=== PATIENT | female | born 1960 | race Caucasian/White ===

== ENCOUNTER 2016-06-08 16:21 | Emergency (ER) | payer MEDICARE ==
--- NOTE | 2016-07-02 08:06 | ER ---
ADMIT: 06/08/2016 [place] [facility] [place] [id number] [id number] [address] [place] [address] Emergency Room Report SEX: F AGE: 55 : 1960 DATE: 06/08/2016 ADDENDUM: CHIEF COMPLAINT: Laceration to bilateral 3rd fingers. HISTORY OF PRESENT ILLNESS: This 55-year-old, who was using a mandolin to cut some things. She cut her 3rd finger on one hand and then switched to the other hand and then cut the other side. There are avulsions to the tips of the finger. Surgicel was placed bilateral. There is no repair done. CLINICAL IMPRESSION: Avulsion to distal bilateral 3rd fingers. NEVIN Castillo / Marcel Hyman MD / modl JOB #: [id number] CC: Marcel Hyman MD, Attending Physician Shahnaz Barcenas MD, Family Physician
== END 2016-06-08 17:00 | disposition home or self-care (01) ==
LOC: ER 16:21
PROC: 0HQGXZZ Repair Left Hand Skin, External Approach (ICD-10-PCS; principal; 2016-06-08)
PROC: 0HQFXZZ Repair Right Hand Skin, External Approach (ICD-10-PCS; principal; 2016-06-08)
DX: S61.213A Laceration without foreign body of left middle finger without damage to nail, initial encounter (principal); S61.212A Laceration without foreign body of right middle finger without damage to nail, initial encounter; Z23 Encounter for immunization; Z87.442 Personal history of urinary calculi; W45.8XXA Other foreign body or object entering through skin, initial encounter; Y92.009 Unspecified place in unspecified non-institutional (private) residence as the place of occurrence of the external cause